=== PATIENT | female | born 1990 | race Caucasian/White ===

== ENCOUNTER 2024-12-13 11:52 | Outpatient (CLI) | payer OTHER, SELFPAY ==
--- NOTE | 2024-12-13 12:15 | CRLHL7_ITS ---
For Patients: As a result of the Cures Act, medical imaging exams and procedure reports are released immediately into your electronic medical record. You may view this report before your referring provider. If you have questions, please contact your health care provider. OB ULTRASOUND LESS THAN 14 WEEKS, 12/13/2024 CLINICAL HISTORY: Dating. COMPARISON: None. TECHNIQUE: Ultrasound OB pelvis transabdominal. Real-time bishop-scale imaging of the pelvis was performed.? FINDINGS: Surgery: No. Imaging: Transabdominal. LMP: 10/09/2024. DONNA by LMP: 07/16/2024. GA: 9 weeks 2 days. CRL: 1.6 cm, 8 weeks 0 days. DONNA 07/25/2024. FHR: 157 bpm. Gest Sac: 2.6 cm, appears WNL. Yolk Sac: 4.5 mm, appears WNL. Right Ov: 3.9 x 3.0 x 3.4 cm, WNL. CL. Left Ov: 2.6 x 1.0 x 2.3 cm. WNL. IMPRESSION: 1. Single living intrauterine measuring 8 weeks 0 days and sonographic due date 07/25/2025. 2. Subchorionic hemorrhage measures 15 x 9 x 6 mm. Additional subchorionic hemorrhage measures 4.0 x 1.8 x 1.6 cm. Jorge A Valdovinos M.D. Diagnostic Radiologist [email or web address] Transcribed: 1:58 pm DW/Dictated by: Jorge A Valdovinos MD @ 12/13/2024 12:47:00 PM (Electronically Signed)
== END 2024-12-13 11:53 | disposition home or self-care (01) ==
LOC: US 11:53
PROVIDERS: Visit Provider Physician Assistant
DX: Z34.91 Encounter for supervision of normal pregnancy, unspecified, first trimester (principal); O20.9 Hemorrhage in early pregnancy, unspecified; Z3A.08 8 weeks gestation of pregnancy
CPT/HCPCS: 76801

== ENCOUNTER 2024-12-13 13:09 | Outpatient (CLI) | payer OTHER, SELFPAY | END 2024-12-13 13:10 | disposition home or self-care (01) | PROVIDERS: Visit Provider Physician Assistant | DX: Z34.91 Encounter for supervision of normal pregnancy, unspecified, first trimester (principal); Z3A.09 9 weeks gestation of pregnancy | CPT/HCPCS: 83020; 83021; 85660; 86592; 86703; 86704; 86706; 86762; 86787; 86803; 86850; 86900; 86901; 87086; 87340; 87624; 87625; 88141; 88142; 88175 ==

== ENCOUNTER 2025-01-10 12:08 | Outpatient (CLI) | payer OTHER, SELFPAY ==
[2025-01-10 15:45] LABS: Chlamydia DNA Amplified* NOT DETECTED (No Detected); GC DNA Amplified* NOT DETECTED (No Detected)
[2025-01-11 22:35] LABS: HPV Source Cervix
[2025-01-13 12:07] LABS: Pap Test Digital Imaging Done
== END 2025-01-10 12:09 | disposition home or self-care (01) ==
PROVIDERS: Visit Provider Registered Nurse
DX: Z34.91 Encounter for supervision of normal pregnancy, unspecified, first trimester (principal); Z3A.12 12 weeks gestation of pregnancy
CPT/HCPCS: 87491; 87591; 87624; 87625; 88141; 88142; 88175

== ENCOUNTER 2025-03-07 07:59 | Outpatient (CLI) | payer OTHER, SELFPAY ==
--- NOTE | 2025-03-07 08:15 | CRLHL7_ITS ---
For Patients: As a result of the Century Cures Act, medical imaging exams and procedure reports are released immediately into your electronic medical record. You may view this report before your referring provider. If you have questions, please contact your health care provider. OB ULTRASOUND DONNA by US: 07/25/2025. GA: 20 w, 0 d. INDICATION: scan. TECHNIQUE: Real time grayscale imaging of the fetus was performed. Evaluate anatomy. Transabdominal imaging performed. position: Breech. Cervix: Visualized. Technique: Transabdominal. Length of closed cervix: 3.6 cm. Placenta/cord: Posterior. Technique: Transabdominal. Placenta tip to internal OS: 9.3 cm. Umbilical Cord: 3-vessel cord. Placenta insertion: Central. Amniotic Fluid: 4.3 cm SDP (greater than/equal to: 2- less than 8 cm). SURVEY: Observed Structures. Calvarium/Spine: Cerebellum: 2.0 cm, 20 w 0 d. Cisterna Magna: 3.9 mm. Nuchal Fold: 4.4 mm. Lateral Ventricle: 6.0 mm. CSP: Yes. Midline Falx: Yes. Choroid Plexus: Yes. Spine: Yes. Abdomen: Stomach: Yes. Abd Cord Insertion: Yes. Urinary Bladder: Yes. Kidneys: See impression Diaphragm: See impression Face: Nose/lips: Yes. Orbital view: Yes. Profile: Yes. Limbs: Upper Extremities: Yes. Lower Extremities: Yes. Hands: Yes. Feet: Yes. Vascular: 4-Chamber Heart: See impression LVOT: Yes. RVOT: See impression 3VV: Yes. 3VTV: See impression BPD: 4.5 cm. 19 w, 4 d, 34.2%. HC: 17.0 cm. 19 w, 4 d, 25.1%. AC: 16.4 cm. 21 w, 3 d, 86.0%. FL: 3.2 cm. 20 w, 0 d, 40.8%. FL/AC ratio: 19.6%. HC/AC ratio: 1.0. heart rate: 152 bpm. age by this US: 20 w, 1 d. DONNA by this US: 07/24/2025. EFW: 364.6g. Weight: 13 oz. Percentile by DONNA: 78.8%. IMPRESSION: 1. Concordance of clinical and sonographic dating. 2. Incomplete visualization of the spine, kidneys, diaphragm, four-chamber heart, RVOT, and three-vessel trachea view. Short-term follow-up recommended. Jorge A Valdovinos M.D. Diagnostic Radiologist [email or web address] PAT/[email or web address]/Dictated by: Jorge A Valdovinos MD @ 03/07/2025 12:02:00 PM (Electronically Signed)
== END 2025-03-07 08:00 | disposition home or self-care (01) ==
LOC: US 08:00
PROVIDERS: Visit Provider Obstetrics & Gynecology
DX: O35.BXX0 Maternal care for other (suspected) fetal abnormality and damage, fetal cardiac anomalies, not applicable or unspecified (principal); O35.EXX0 Maternal care for other (suspected) fetal abnormality and damage, fetal genitourinary anomalies, not applicable or unspecified; Z3A.20 20 weeks gestation of pregnancy
CPT/HCPCS: 76805

== ENCOUNTER 2025-03-15 11:26 | Outpatient (CLI) | payer OTHER, SELFPAY ==
--- NOTE | 2025-03-15 11:30 | CRLHL7_ITS ---
For Patients: As a result of the Century Cures Act, medical imaging exams and procedure reports are released immediately into your electronic medical record. You may view this report before your referring provider. If you have questions, please contact your health care provider. OB ULTRASOUND DONNA by US: 07/25/2025. GA: 21 w, 1 d. Single. INDICATION: Follow-up heart, spine, kidneys, and diaphragm. TECHNIQUE: Real time grayscale imaging of the fetus was performed. Transabdominal. CERVIX: Not visualized. POSITIONING: Vertex. AMNIOTIC FLUID: 5.3 cm. SDP (N: greater than 2 x 1 cm) PLACENTA: Technique: Transabdominal. PLACENTA POSITION: Posterior. DOPPLER: heart rate: 139 bpm. IMPRESSION: Normal diaphragm, RVOT, LVOT, three-vessel view, three-vessel trachea view, kidneys, and spine. Jorge A Valdovinos M.D. Diagnostic Radiologist [email or web address] PAT/[email or web address]/Dictated by: Jorge A Valdovinos MD @ 03/15/2025 2:05:00 PM (Electronically Signed)
== END 2025-03-15 11:27 | disposition home or self-care (01) ==
LOC: US 11:26
PROVIDERS: Visit Provider Obstetrics & Gynecology
DX: O35.BXX0 Maternal care for other (suspected) fetal abnormality and damage, fetal cardiac anomalies, not applicable or unspecified (principal); O35.EXX0 Maternal care for other (suspected) fetal abnormality and damage, fetal genitourinary anomalies, not applicable or unspecified; Z3A.20 20 weeks gestation of pregnancy
CPT/HCPCS: 76816

== ENCOUNTER 2025-05-02 08:07 | Outpatient (CLI) | payer OTHER, SELFPAY | END 2025-05-02 08:08 | disposition home or self-care (01) | LOC: NFLDREF 05-08 18:05 | PROVIDERS: Visit Provider Obstetrics & Gynecology | DX: Z34.83 Encounter for supervision of other normal pregnancy, third trimester (principal) | CPT/HCPCS: 86780 ==

== ENCOUNTER 2025-05-03 08:18 | Outpatient (CLI) | payer OTHER, SELFPAY | END 2025-05-03 08:19 | disposition home or self-care (01) | LOC: NFLDREF 05-09 16:23 | PROVIDERS: Visit Provider Registered Nurse | DX: O99.810 Abnormal glucose complicating pregnancy (principal) | CPT/HCPCS: 82951; 82952 ==